=== PATIENT | male | born 1950 | race Caucasian/White ===

== ENCOUNTER 2019-09-18 04:45 | Observation (INO) | payer OTHER ==
[2019-09-18] MEDS ORDERED: Sodium Chloride 0.9% 1,000 ML IV ONE ×2 (05:07→07:18)
[2019-09-18] MEDS ORDERED: Morphine 4 MG/ML Syringe IVPUSH ONE (05:08)
[2019-09-18] MEDS ORDERED: Ondansetron 4 MG/2 ML SDV IVPUSH ONE (05:09)
[2019-09-18 05:27] LABS: BLOOD UREA NITROGEN,BUN 10 mg/dL (7.0-18.0); CARBON DIOXIDE,CO2 24.8 mmol/L (21.0-32.0); CHLORIDE,CL 105 mmol/L (98-107); GLUCOSE RANDOM 104 mg/dL (74-106); LIPASE 735 U/L (73-393); POTASSIUM,K 3.6 mmol/L (3.5-5.1); SODIUM,NA 141 mmol/L (136-148)
[2019-09-18] MEDS ORDERED: Iopamidol 755 Mg/ML 100 ML Bottle IVPUSH STA (05:42)
--- NOTE | 2019-09-18 07:09 | CT ---
INDICATION: Abdominal pain with vomiting and diarrhea. COMPARISON: 11/18/2018. TECHNIQUE: CT abdomen pelvis with IV contrast. 100 cc Isovue-370. FINDINGS: Linear scarring in the right middle lobe and lingula are again noted. Coronary artery calcifications. Mild intrahepatic biliary ductal dilatation is increased compared to prior exam. Status post cholecystectomy. Nodular cirrhotic liver morphology is again noted. Subcentimeter right hepatic hypoattenuating lesion is too small to characterize but stable. Spleen is mildly enlarged, stable. Pancreatic parenchymal calcifications are similar to prior exam likely sequelae of chronic pancreatitis. Adrenal glands are unremarkable. No obstructing renal calculus or hydronephrosis. Subcentimeter renal hypoattenuating lesions are too small to characterize but stable. Abdominal aorta is non aneurysmal. No lymphadenopathy in the abdomen pelvis. No free fluid or free air. Prostate is enlarged, similar to prior. Very bladder is unremarkable. Colonic diverticulosis. Appendix is nondilated, and extends into right inguinal hernia. Bilateral inguinal hernias, left contains fat in the right contains fat as well as the appendix. No evidence of bowel obstruction or inflammation. Degenerative changes again noted in the spine and hips. Rightward curvature of the spine is again noted. IMPRESSION: 1. Intrahepatic biliary ductal dilatation is increased from prior exam with of uncertain etiology. Recommend clinical correlation. 2. No evidence of bowel obstruction or inflammation. Appendix is unremarkable. 3. Cirrhotic liver morphology. 4. Diverticulosis. Please note that all CT scans at this facility use dose modulation, iterative reconstruction, and/or weight-based dosing when appropriate to reduce radiation dose to as low as reasonably achievable. Dictated by Jann Downs MD @ Sep 18 2019 6:58AM Signed by Dr. Jann Downs @ Sep 18 2019 7:08AM
--- NOTE | 2019-09-18 07:25 | EDM.PDOC ---
ED HPI GENERAL MEDICAL PROBLEM - General Chief Complaint: Abdominal Pain Stated Complaint: ABDOMINAL PAIN AND DIARRHEA Time Seen by Provider: 09/18/19 04:46 Source of Information: Reports: Patient History Limitations: Reports: No Limitations - History of Present Illness INITIAL COMMENTS - FREE TEXT/NARRATIVE: 69-year-old male who presents the emergency room with a chief complaint of severe epigastric pain going on for the past 2 days. States she has had some episodes of nausea and vomiting. Duration: Day(s): (4), Getting Worse Location: Reports: Abdomen Quality: Reports: Ache Severity: Moderate Improves with: Reports: None Worsens with: Reports: None Associated Symptoms: Reports: No Other Symptoms, Nausea/Vomiting Abdomen Pain Score (Numeric/FACES): 9 - Related Data Allergies Allergy/AdvReac Type Severity Reaction Status Date / Time No Known Allergies Allergy Verified 09/18/19 04:55 Home Meds: Home Meds . [No Known Home Meds] 09/18/19 [History] Past Medical History - Infectious Disease History Infectious Disease History: Reports: Hepatitis C - Past Surgical History GI Surgical History: Reports: Cholecystectomy Musculoskeletal Surgical History: Reports: Other (See Below) Other Musculoskeletal Surgeries/Procedures:: back surgery Social & Family History - Family History Family Medical History: Noncontributory - Tobacco Use Smoking Status *Q: Current Every Day Smoker Years of Tobacco use: 45 Packs/Tins Daily: 2 - Caffeine Use Caffeine Use: Reports: Coffee - Recreational Drug Use Recreational Drug Use: Yes Recreational Drug Type: Reports: Marijuana/Hashish Recreational Drug Use Frequency: Daily ED ROS GENERAL - Review of Systems Review Of Systems: See Below Constitutional: Reports: No Symptoms HEENT: Reports: No Symptoms Respiratory: Reports: No Symptoms Cardiovascular: Reports: No Symptoms Endocrine: Reports: No Symptoms GI/Abdominal: Reports: Abdominal Pain, Vomiting : Reports: No Symptoms Musculoskeletal: Reports: No Symptoms Skin: Reports: No Symptoms Neurological: Reports: No Symptoms Psychiatric: Reports: No Symptoms Hematologic/Lymphatic: Reports: No Symptoms Immunologic: Reports: No Symptoms ED EXAM, GI/ABD - Physical Exam Exam: See Below Exam Limited By: No Limitations General Appearance: Alert, WD/WN, No Apparent Distress Ears: Normal External Exam, Normal Canal, Hearing Grossly Normal, Normal TMs Nose: Normal Inspection, Normal Mucosa Throat/Mouth: Normal Inspection, Normal Lips Head: Atraumatic, Normocephalic Neck: Normal Inspection, Supple, Non-Tender, Full Range of Motion Respiratory/Chest: No Respiratory Distress, Lungs Clear, Normal Breath Sounds Cardiovascular: Normal Peripheral Pulses, Regular Rate, Rhythm, No Edema GI/Abdominal Exam: Normal Bowel Sounds, Soft, Non-Tender, No Organomegaly (Male) Exam: No Hernia, Normal Inspection Back Exam: Normal Inspection, Full Range of Motion Extremities: Normal Inspection, Normal Range of Motion Neurological: Alert, Oriented, CN II-XII Intact, Normal Cognition Psychiatric: Normal Affect, Normal Mood Skin Exam: Warm, Dry, Intact, Normal Color, No Rash Lymphatic: No Adenopathy Course - Vital Signs Text/Narrative:: This is a 69-year-old male who presents the emergency room chief complaints of severe epigastric pain nausea and vomiting. Patient states he is never had pain like this in the past Patient was given IV fluids and pain medicine labs were drawn. Patient's lipase is elevated to 736. Patient's CAT scan shows chronic pancreatitis no masses with some chronic hepatic changes. Patient will be admitted to the hospital with diagnosis of acute on chronic pancreatitis. IV fluids have been started patient is pain-free at this time. Reevaluation at 735 reveals patient is comfortable and in no acute distress. Cussed the case with Dr. Jha patient will be admitted to observation Last Recorded V/S: Last Vital Signs Temp 97.0 F 09/18/19 04:56 Pulse 52 L 09/18/19 04:56 Resp 20 09/18/19 04:56 BP 138/81 09/18/19 04:56 Pulse Ox 97 09/18/19 04:56 - Orders/Labs/Meds Orders: Active Orders 24 hr Category Date Time Status Abdomen Ltd [US] Stat Exams 09/18/19 07:18 Ordered Sodium Chloride 0.9% [Normal Saline] 1,000 ml Med 09/18/19 07:18 Active IV .Bolus Medication Orders Sodium Chloride (Normal Saline) 1,000 mls @ 999 mls/hr IV .Bolus ONE Stop: 09/18/19 08:18 Labs: Laboratory Tests 09/18/19 09/18/19 Range/Units 05:05 05:05 WBC 7.96 (4.0-11.0) K/uL RBC 5.03 (4.50-5.90) M/uL Hgb 17.1 H (13.0-17.0) g/dL Hct 48.1 (38.0-50.0) % MCV 95.6 (80.0-98.0) fL MCH 34.0 H (27.0-32.0) pg MCHC 35.6 (31.0-37.0) g/dL RDW Std Deviation 42.5 (28.0-62.0) fl RDW Coeff of Bina 12 (11.0-15.0) % Plt Count 128 L (150-400) K/uL MPV 11.40 (7.40-12.00) fL Neut % (Auto) 49.4 (48.0-80.0) % Lymph % (Auto) 41.3 H (16.0-40.0) % [place] % (Auto) 7.0 (0.0-15.0) % Eos % (Auto) 1.9 (0.0-7.0) % Baso % (Auto) 0.4 (0.0-1.5) % Neut # (Auto) 3.9 (1.4-5.7) K/uL Lymph # (Auto) 3.3 H (0.6-2.4) K/uL [place] # (Auto) 0.6 (0.0-0.8) K/uL Eos # (Auto) 0.2 (0.0-0.7) K/uL Baso # (Auto) 0.0 (0.0-0.1) K/uL Nucleated RBC % 0.0 /100WBC Nucleated RBCs # 0 K/uL Sodium 141 (136-148) mmol/L Potassium 3.6 (3.5-5.1) mmol/L Chloride 105 (98-107) mmol/L Carbon Dioxide 24.8 (21.0-32.0) mmol/L BUN 10 (7.0-18.0) mg/dL Creatinine 0.9 (0.8-1.3) mg/dL Est Cr Clr Drug Dosing 90.01 mL/min Estimated GFR (MDRD) > 60.0 ml/min Glucose 104 (74-106) mg/dL Calcium 8.2 L (8.5-10.1) mg/dL Total Bilirubin 0.8 (0.2-1.0) mg/dL AST 29 (15-37) IU/L ALT 28 (14-63) IU/L Alkaline Phosphatase 91 (46-116) U/L Total Protein 6.9 (6.4-8.2) g/dL Albumin 3.7 (3.4-5.0) g/dL Globulin 3.2 (2.6-4.0) g/dL Albumin/Globulin Ratio 1.2 (0.9-1.6) Lipase 735 H (73-393) U/L Meds: Medications Generic Name Dose Route Start Last Admin Trade Name Freq PRN Reason Stop Dose Admin Sodium Chloride 1,000 mls @ 999 mls/hr 09/18/19 07:18 Normal Saline IV 09/18/19 08:18 .Bolus ONE Discontinued Medications Generic Name Dose Route Start Last Admin Trade Name Freq PRN Reason Stop Dose Admin Sodium Chloride 1,000 mls @ 1,000 mls/hr 09/18/19 05:07 09/18/19 05:17 Normal Saline IV 09/18/19 06:06 1,000 mls/hr .Bolus ONE Administration Iopamidol 100 ml 09/18/19 05:42 09/18/19 06:15 Isovue-370 (76%) IVPUSH 09/18/19 05:43 100 ml ONETIME STA Administration Morphine Sulfate 4 mg 09/18/19 05:08 09/18/19 05:17 Morphine IVPUSH 09/18/19 05:09 4 mg ONETIME ONE Administration Ondansetron HCl 4 mg 09/18/19 05:09 09/18/19 05:17 Zofran IVPUSH 09/18/19 05:10 4 mg ONETIME ONE Administration Departure - Departure Time of Disposition: 07:25 Disposition: Refer to Observation Condition: Good Clinical Impression: Pancreatitis - Discharge Information Referrals: PCP,None [Primary Care Provider] - Sepsis Event Note - Evaluation Sepsis Screening Result: No Definite Risk - Focused Exam Vital Signs: Vital Signs Temp Pulse Resp BP Pulse Ox 09/18/19 04:56 97.0 F 52 L 20 138/81 97 Date Exam was Performed: 09/18/19 Time Exam was Performed: 07:19
--- NOTE | 2019-09-18 08:42 | US ---
Limited abdominal ultrasound: Multiple real-time images of the upper right abdomen were obtained. Comparison: Prior CT abdomen and pelvis study of 09/18/19. Visualized portions of the pancreas shows no discrete abnormality. Liver shows no focal parenchymal abnormality. Right kidney shows no hydronephrosis or mass. Right kidney has a length of 11.0 cm. Common bile duct measures normal. Prior cholecystectomy is noted. Impression: 1. No biliary duct dilatation is seen on this exam. Prior cholecystectomy. 2. Other portions of the right upper quadrant abdominal ultrasound are unremarkable. Diagnostic code #2 This report was dictated in MDT
[2019-09-18] MEDS ORDERED: Ondansetron 4 MG/2 ML SDV IVPUSH PRN (08:49)
--- NOTE | 2019-09-18 08:58 | PCM.HP.2 ---
H&P History of Present Illness - General Date of Service: 09/18/19 Admit Problem/Dx: Admission Diagnosis/Problem Admission Diagnosis/Problem Pancreatitis - History of Present Illness Initial Comments - Free Text/Narative: 69 yo male with pmh hep C, liver cirrhosis, esophageal varices who presents with a one day history of abdominal pain. The pain is periumbilical and nonradiating. Several days before he reported some fevers with loose stools. He denies any blood in stool. He report increase heart burn. CT scan and ultrasound of abdomen are unremarkable. Abdomen Pain Score (Numeric/FACES): 9 - Related Data Allergies/Adverse Reactions: Allergies Allergy/AdvReac Type Severity Reaction Status Date / Time No Known Allergies Allergy Verified 09/18/19 04:55 Home Medications: Home Meds . [No Known Home Meds] 09/18/19 [History] Past Medical History - Infectious Disease History Infectious Disease History: Reports: Hepatitis C - Past Surgical History GI Surgical History: Reports: Cholecystectomy Musculoskeletal Surgical History: Reports: Other (See Below) Other Musculoskeletal Surgeries/Procedures:: back surgery Social & Family History - Family History Family Medical History: Noncontributory - Tobacco Use Smoking Status *Q: Current Every Day Smoker Years of Tobacco use: 45 Packs/Tins Daily: 2 - Caffeine Use Caffeine Use: Reports: Coffee - Recreational Drug Use Recreational Drug Use: Yes Recreational Drug Type: Reports: Marijuana/Hashish Recreational Drug Use Frequency: Daily H&P Review of Systems - Review of Systems: Review Of Systems: Comprehensive ROS is negative, except as noted in HPI. Exam - Exam Exam: See Below - Vital Signs Vital Signs: Last Vital Signs Temp 35.9 C L 09/18/19 08:43 Pulse 69 09/18/19 08:43 Resp 16 09/18/19 08:43 BP 143/89 H 09/18/19 08:43 Pulse Ox 97 09/18/19 08:43 Weight: 90.718 kg - Exam General: Alert, Oriented HEENT: Mucosa Moist & [place], Posterior Pharynx Clear Lungs: Clear to Auscultation, Normal Respiratory Effort Cardiovascular: Regular Rate, Regular Rhythm GI/Abdominal Exam: Normal Bowel Sounds, Soft, Non-Tender Extremities: Non-Tender, No Pedal Edema Skin: Warm, Dry, Intact - Patient Data Lab Results Last 24 hrs: Laboratory Results - last 24 hr 09/18/19 09/18/19 Range/Units 05:05 05:05 WBC 7.96 (4.0-11.0) K/uL RBC 5.03 (4.50-5.90) M/uL Hgb 17.1 H (13.0-17.0) g/dL Hct 48.1 (38.0-50.0) % MCV 95.6 (80.0-98.0) fL MCH 34.0 H (27.0-32.0) pg MCHC 35.6 (31.0-37.0) g/dL RDW Std Deviation 42.5 (28.0-62.0) fl RDW Coeff of Bina 12 (11.0-15.0) % Plt Count 128 L (150-400) K/uL MPV 11.40 (7.40-12.00) fL Neut % (Auto) 49.4 (48.0-80.0) % Lymph % (Auto) 41.3 H (16.0-40.0) % [place] % (Auto) 7.0 (0.0-15.0) % Eos % (Auto) 1.9 (0.0-7.0) % Baso % (Auto) 0.4 (0.0-1.5) % Neut # (Auto) 3.9 (1.4-5.7) K/uL Lymph # (Auto) 3.3 H (0.6-2.4) K/uL [place] # (Auto) 0.6 (0.0-0.8) K/uL Eos # (Auto) 0.2 (0.0-0.7) K/uL Baso # (Auto) 0.0 (0.0-0.1) K/uL Nucleated RBC % 0.0 /100WBC Nucleated RBCs # 0 K/uL Sodium 141 (136-148) mmol/L Potassium 3.6 (3.5-5.1) mmol/L Chloride 105 (98-107) mmol/L Carbon Dioxide 24.8 (21.0-32.0) mmol/L BUN 10 (7.0-18.0) mg/dL Creatinine 0.9 (0.8-1.3) mg/dL Est Cr Clr Drug Dosing 90.01 mL/min Estimated GFR (MDRD) > 60.0 ml/min Glucose 104 (74-106) mg/dL Calcium 8.2 L (8.5-10.1) mg/dL Total Bilirubin 0.8 (0.2-1.0) mg/dL AST 29 (15-37) IU/L ALT 28 (14-63) IU/L Alkaline Phosphatase 91 (46-116) U/L Total Protein 6.9 (6.4-8.2) g/dL Albumin 3.7 (3.4-5.0) g/dL Globulin 3.2 (2.6-4.0) g/dL Albumin/Globulin Ratio 1.2 (0.9-1.6) Lipase 735 H (73-393) U/L Result Diagrams: 09/18/19 05:05 09/18/19 05:05 Sepsis Event Note - Evaluation Sepsis Screening Result: No Definite Risk - Focused Exam Vital Signs: Vital Signs Temp Pulse Resp BP Pulse Ox 09/18/19 08:43 35.9 C L 69 16 143/89 H 97 09/18/19 07:30 61 18 122/83 98 09/18/19 04:56 36.1 C 52 L 20 138/81 97 Date Exam was Performed: 09/18/19 Time Exam was Performed: 08:52 Problem List Initiated/Reviewed/Updated: Yes Orders Last 24hrs: Active Orders 24 hr Category Date Time Status Admission Status [Patient Status] [ADT] Stat ADT 09/18/19 07:27 Active Antiembolic Devices [RC] PER UNIT ROUTINE Care 09/18/19 08:51 Ordered Oxygen Therapy [RC] PRN Care 09/18/19 08:50 Ordered Up ad Brigitte [RC] ASDIRECTED Care 09/18/19 08:49 Ordered VTE/DVT Education [RC] PER UNIT ROUTINE Care 09/18/19 08:50 Ordered Vital Signs [RC] Q4H Care 09/18/19 08:50 Ordered Nothing per Oral Now Diet [DIET] Diet 09/18/19 Breakfast Ordered C DIFFICILE AG/TOXIN W/REFLEX [RM] Routine Lab 09/18/19 08:51 Ordered CBC WITH AUTO DIFF [HEME] AM Lab 09/19/19 05:11 Ordered COMPREHENSIVE METABOLIC PN,CMP [CHEM] AM Lab 09/19/19 05:11 Ordered STOOL CULTURE/SHIGA TOXIN [MREF] Routine Lab 09/18/19 08:51 Ordered Morphine Med 09/18/19 08:49 Ordered 2 mg IVPUSH Q2H PRN Ondansetron [Zofran] Med 09/18/19 08:49 Ordered 4 mg IVPUSH Q4H PRN Sodium Chloride 0.9% @ 150 MLS/HR (1,000ml) Med 09/18/19 09:00 Ordered Sodium Chloride 0.9% [Normal Saline] 1,000 ml IV ASDIRECTED Sequential Compression Device [OM.PC] Per Unit Routine Oth 09/18/19 08:50 Ordered Resuscitation Status Routine Resus Stat 09/18/19 08:49 Ordered Medication Orders Sodium Chloride (Normal Saline) 1,000 mls @ 150 mls/hr IV ASDIRECTED [facility] Morphine Sulfate (Morphine) 2 mg IVPUSH Q2H PRN PRN Reason: Pain (severe 7-10) Stop: 09/19/19 08:51 Ondansetron HCl (Zofran) 4 mg IVPUSH Q4H PRN PRN Reason: Nausea Assessment/Plan Comment:: 69 yo male admitted for acute pancreatitis vs gastroenteritis. We will treat with IV fluids, bowel rest and prn morphine.
[2019-09-18] MEDS: Sodium Chloride 0.9% 1,000 ML IV SCH ×3 (09:28→23:16)
[2019-09-18] MEDS: Pantoprazole 40 MG in Sodium Chloride 0.9% 10 ML IV SCH (09:32)
[2019-09-18] MEDS: Morphine 2 MG/ML Syringe IVPUSH PRN ×2 (09:34→15:18)
[2019-09-18] MEDS: Nicotine 21 MG/24 Hr Patch TRDERM SCH (09:45)
[2019-09-19] MEDS: Sodium Chloride 0.9% 1,000 ML IV SCH (06:16)
[2019-09-19 06:40] LABS: BLOOD UREA NITROGEN,BUN 9 mg/dL (7.0-18.0); CARBON DIOXIDE,CO2 20.9 mmol/L (21.0-32.0); CHLORIDE,CL 109 mmol/L (98-107); GLUCOSE RANDOM 71 mg/dL (74-106); POTASSIUM,K 3.7 mmol/L (3.5-5.1); SODIUM,NA 142 mmol/L (136-148)
--- NOTE | 2019-09-19 08:14 | PCM.DCSUM1 ---
Discharge Summary - Discharge Data Discharge Date: 09/19/19 Discharge Disposition: Home, Self-Care 01 Condition: Stable - Referral to Home Health Primary Care Physician: PCP None - Patient Summary/Data Hospital Course: 69 yo male with pmh hep C, liver cirrhosis, esophageal varices who presents with a one day history of abdominal pain. The pain was periumbilical and nonradiating. Several days before he reported some fevers with loose stools. He denies any blood in stool. He report increase heart burn. Lab work was unremarkable CT scan and ultrasound of abdomen were also unremarkable. He was treated with IV fluids and had resolution of his pain. This morning he is requesting discharge home. He is to follow up with the [place] clinic. - Patient Instructions Diet: Clear Liquid Diet (for 24 hours) - Discharge Plan Home Medications: Home Meds . [No Known Home Meds] 09/18/19 [History] Patient Handouts: Acute Pancreatitis, [id number] - Discharge Summary/Plan Comment DC Time >30 min.: No - Patient Data Vitals - Most Recent: Last Vital Signs Temp 36.5 C 09/19/19 04:00 Pulse 48 L 09/19/19 04:00 Resp 16 09/19/19 04:00 BP 94/49 L 09/19/19 04:00 Pulse Ox 97 09/19/19 04:00 Weight - Most Recent: 89.947 kg I&O - Last 24 hours: Intake & Output 09/18/19 09/19/19 09/19/19 22:59 06:59 14:59 Intake Total 966 1798 Output Total 900 500 Balance 66 1298 Lab Results - Last 24 hrs: Laboratory Results - last 24 hr 09/18/19 09/19/19 09/19/19 Range/Units 05:05 05:45 05:45 WBC 3.99 L (4.0-11.0) K/uL RBC 4.14 L (4.50-5.90) M/uL Hgb 13.5 (13.0-17.0) g/dL Hct 39.8 (38.0-50.0) % MCV 96.1 (80.0-98.0) fL MCH 32.6 H (27.0-32.0) pg MCHC 33.9 (31.0-37.0) g/dL RDW Std Deviation 42.5 (28.0-62.0) fl RDW Coeff of Bina 12 (11.0-15.0) % Plt Count 114 L (150-400) K/uL MPV 11.70 (7.40-12.00) fL Neut % (Auto) 61.6 (48.0-80.0) % Lymph % (Auto) 30.6 (16.0-40.0) % [place] % (Auto) 5.8 (0.0-15.0) % Eos % (Auto) 1.5 (0.0-7.0) % Baso % (Auto) 0.5 (0.0-1.5) % Neut # (Auto) 2.5 (1.4-5.7) K/uL Lymph # (Auto) 1.2 (0.6-2.4) K/uL [place] # (Auto) 0.2 (0.0-0.8) K/uL Eos # (Auto) 0.1 (0.0-0.7) K/uL Baso # (Auto) 0.0 (0.0-0.1) K/uL Nucleated RBC % 0.0 /100WBC Nucleated RBCs # 0 K/uL Sodium 142 (136-148) mmol/L Potassium 3.7 (3.5-5.1) mmol/L Chloride 109 H (98-107) mmol/L Carbon Dioxide 20.9 L (21.0-32.0) mmol/L BUN 9 (7.0-18.0) mg/dL Creatinine 0.8 (0.8-1.3) mg/dL Est Cr Clr Drug Dosing 101.26 mL/min Estimated GFR (MDRD) > 60.0 ml/min Glucose 71 L (74-106) mg/dL Calcium 7.8 L (8.5-10.1) mg/dL Total Bilirubin 0.9 (0.2-1.0) mg/dL AST 37 (15-37) IU/L ALT 53 (14-63) IU/L Alkaline Phosphatase 128 H (46-116) U/L Total Protein 5.5 L (6.4-8.2) g/dL Albumin 2.8 L (3.4-5.0) g/dL Globulin 2.7 (2.6-4.0) g/dL Albumin/Globulin Ratio 1.0 (0.9-1.6) Triglycerides 92 (0-200) mg/dL Cholesterol 107 (50-200) mg/dL LDL Cholesterol, Calc 62 (60-180) mg/dL VLDL Cholesterol 18 (5-55) mg/dL HDL Cholesterol 27 L (40-60) mg/dL Cholesterol/HDL Ratio 4.0 (3.3-6.0) Med Orders - Current: Current Medications Sodium Chloride (Normal Saline) 1,000 mls @ 150 mls/hr IV ASDIRECTED [facility] Last Admin: 09/19/19 06:16 Dose: 150 mls/hr Pantoprazole Sodium 40 mg/ (Sodium Chloride) 10 mls @ 300 mls/hr IV DAILY [facility] Last Admin: 09/18/19 09:32 Dose: 300 mls/hr Morphine Sulfate (Morphine) 2 mg IVPUSH Q2H PRN PRN Reason: Pain (severe 7-10) Stop: 09/19/19 08:51 Last Admin: 09/18/19 15:18 Dose: 2 mg Nicotine (Habitrol) 21 mg TRDERM DAILY [facility] Last Admin: 09/18/19 09:45 Dose: 21 mg Ondansetron HCl (Zofran) 4 mg IVPUSH Q4H PRN PRN Reason: Nausea Discontinued Medications Sodium Chloride (Normal Saline) 1,000 mls @ 1,000 mls/hr IV .Bolus ONE Stop: 09/18/19 06:06 Last Admin: 09/18/19 05:17 Dose: 1,000 mls/hr Sodium Chloride (Normal Saline) 1,000 mls @ 999 mls/hr IV .Bolus ONE Stop: 09/18/19 08:18 Last Admin: 09/18/19 07:31 Dose: 999 mls/hr Iopamidol (Isovue-370 (76%)) 100 ml IVPUSH ONETIME STA Stop: 09/18/19 05:43 Last Admin: 09/18/19 06:15 Dose: 100 ml Morphine Sulfate (Morphine) 4 mg IVPUSH ONETIME ONE Stop: 09/18/19 05:09 Last Admin: 09/18/19 05:17 Dose: 4 mg Ondansetron HCl (Zofran) 4 mg IVPUSH ONETIME ONE Stop: 09/18/19 05:10 Last Admin: 09/18/19 05:17 Dose: 4 mg
[2019-09-19] MEDS: Pantoprazole 40 MG in Sodium Chloride 0.9% 10 ML IV SCH (08:28)
[2019-09-19] MEDS: Nicotine 21 MG/24 Hr Patch TRDERM SCH (08:29)
== END 2019-09-19 10:57 | disposition home or self-care (01) ==
LOC: MW.ED 04:45 → MW.MS 07:27
PROVIDERS: ADMIT Internal Medicine; ATTEND Internal Medicine
DX: R10.33 Periumbilical pain (principal); R19.7 Diarrhea, unspecified; R50.9 Fever, unspecified; K74.60 Unspecified cirrhosis of liver; F17.210 Nicotine dependence, cigarettes, uncomplicated; Z90.49 Acquired absence of other specified parts of digestive tract
CPT/HCPCS: 36415; 74177; 76705; 80053; 80061; 83690; 85025; 96361; 96374; 96375; 96376; 99285; A9270; C9113; G0378; J2270; J2405; J7030; J7050; Q9967

== ENCOUNTER 2020-10-11 10:48 | Day surgery (SDC) | payer OTHER ==
[~2020-10-11 10:48] MED LIST: Glycopyrrolate 0.2 MG/ML SDV ONE; Ketorolac 30 MG/ML SDV ONE; Lactated Ringers 1,000 ML IV SCH; Lidocaine 2% 5 ML SDV ONE; Midazolam 1 MG/ML 2 ML SDV ONE; Ondansetron 4 MG/2 ML SDV ONE; Propofol 200 MG/20 ML SDV ONE; cefOXitin 2 GM in Premix Bag 1 BAG IV SCH; fentaNYL 100 MCG/2 ML SDV ONE
[2020-10-11] MEDS ORDERED: Octyl 2-Cyanoacrylate 1 Tube ONE (11:29)
[2020-10-11] MEDS ORDERED: Bupivacaine 25%/EPINEPHrine/PF 30 ML ONE (11:29)
[2020-10-11] MEDS ORDERED: fentaNYL 250 MCG/5 ML SDV ONE (11:54)
[2020-10-11] MEDS ORDERED: Ondansetron 4 MG/2 ML SDV ONE (11:54)
[2020-10-11] MEDS ORDERED: Glycopyrrolate 0.2 MG/ML SDV ONE (11:54)
[2020-10-11] MEDS ORDERED: Midazolam 1 MG/ML 2 ML SDV ONE (11:54)
[2020-10-11] MEDS ORDERED: Propofol 200 MG/20 ML SDV ONE (11:54)
[2020-10-11] MEDS ORDERED: Ketorolac 30 MG/ML SDV ONE ×2 (11:54→14:45)
[2020-10-11] MEDS ORDERED: Lidocaine 2% 5 ML SDV ONE (11:54)
--- NOTE | 2020-10-11 11:57 | PCM.PREANE ---
Preanesthetic Assessment - Anesthesia/Transfusion/Family Hx Anesthesia History: Prior Anesthesia Without Reaction Family History of Anesthesia Reaction: No Transfusion History: No Prior Transfusion(s) - Review of Systems General: No Symptoms Pulmonary: No Symptoms Cardiovascular: No Symptoms Gastrointestinal: No Symptoms Neurological: No Symptoms Other: Reports: None - Physical Assessment NPO Status Date: 10/11/20 NPO Status Time: 00:05 Vital Signs: Last Vital Signs Temp 97.7 F 10/11/20 11:08 Pulse 62 10/11/20 11:08 Resp 16 10/11/20 11:08 BP 134/91 H 10/11/20 11:08 Pulse Ox 99 10/11/20 11:08 Height: 6 ft 1 in Weight: 195 lb ASA Class: 2 Mental Status: Alert & Oriented x3 Airway Class: Mallampati = 2 Dentition: Reports: Normal Dentition, Dentures ROM/Head Extension: Limited/Partial Lungs: Clear to Auscultation, Normal Respiratory Effort Cardiovascular: Regular Rate, Regular Rhythm - Allergies Allergies/Adverse Reactions: Allergies Allergy/AdvReac Type Severity Reaction Status Date / Time No Known Allergies Allergy Verified 10/11/20 11:13 - Anesthesia Plan Pre-Op Medication Ordered: None - Acknowledgements Anesthesia Type Planned: General Anesthesia Pt an Appropriate Candidate for the Planned Anesthesia: Yes Alternatives and Risks of Anesthesia Discussed w Pt/Guardian: Yes Pt/Guardian Understands and Agrees with Anesthesia Plan: Yes Additional Comments: npo after [place] tob 1 ppd etoh none for 40 years anxiety depression hayfever gout microdisc back surgery he has no cervical radiculopathy per pt no cv problems ni bp meds par no questions PreAnesthesia Questionnaire HEENT History: Reports: Allergic Rhinitis, Hard of Hearing, Other (See Below) Other HEENT History: wears glasses, has upper and lower dentures, has bilateral hearing aides Gastrointestinal History: Reports: Hepatitis Other Gastrointestinal History: hx of Hepatitis B- has been treated and cleared Musculoskeletal History: Reports: Arthritis, Back Pain, Chronic, Fracture, Gout, Neck Pain, Chronic Other Musculoskeletal History: hx of fx leg x2 as a child Psychiatric History: Reports: PTSD - Infectious Disease History Infectious Disease History: Reports: Hepatitis C - Past Surgical History Head Surgeries/Procedures: Reports: None GI Surgical History: Reports: Cholecystectomy Male Surgical History: Reports: Vasectomy Neurological Surgical History: Reports: Laminectomy, Lumbar Spine Musculoskeletal Surgical History: Reports: Other (See Below) Other Musculoskeletal Surgeries/Procedures:: back surgery - SUBSTANCE USE Tobacco Use Status *Q: Current Every Day Tobacco User Tobacco Use Within Last Twelve Months: Cigarettes Recreational Drug Use History: Yes Recreational Drug Type: Reports: Marijuana/Hashish - HOME MEDS Home Medications: Home Meds Fluticasone Propionate [Flonase Allergy Relief] 1 spray NASBOTH DAILY 10/07/20 [History] Multivitamin 1 tab PO DAILY 10/07/20 [History] - CURRENT (IN HOUSE) MEDS Current Meds: Current Medications Lactated Ringer's (Ringers, Lactated) 1,000 mls @ 125 mls/hr IV ASDIRECTED [facility] Last Admin: 10/11/20 11:13 Dose: 125 mls/hr Documented by: Cefoxitin Sodium 2 gm/ Premix 50 mls @ 100 mls/hr IV ONCALL [facility] Discontinued Medications Fentanyl (Fentanyl 100 Mcg/2 Ml Sdv) Confirm Administered Dose 100 mcg .ROUTE .STK-MED ONE Stop: 10/11/20 10:36 Glycopyrrolate (Glycopyrrolate 0.2 Mg/Ml Sdv) Confirm Administered Dose 0.2 mg .ROUTE .STK-MED ONE Stop: 10/11/20 10:36 Bupivacaine HCl/Epinephrine Bitart (Sensorc Mpf 0.25%-Epi [id number]) Confirm Ad ministered Dose 30 mls @ as directed .ROUTE .STK-MED ONE Stop: 10/11/20 11:30 Ketorolac Tromethamine (Ketorolac 30 Mg/Ml Sdv) Confirm Administered Dose 30 mg .ROUTE .STK-MED ONE Stop: 10/11/20 10:36 Lidocaine (Lidocaine 2% 5 Ml Sdv) Confirm Administered Dose 5 ml .ROUTE .STK-MED ONE Stop: 10/11/20 10:36 Midazolam HCl (Midazolam 1 Mg/Ml 2 Ml Sdv) Confirm Administered Dose 2 mg .ROUTE .STK-MED ONE Stop: 10/11/20 10:36 Octyl Cyanoacrylate (Octyl 2-Cyanoacrylate 1 Tube) Confirm Administered Dose 1 applic .ROUTE .STK-MED ONE Stop: 10/11/20 11:30 Ondansetron HCl (Ondansetron 4 Mg/2 Ml Sdv) Confirm Administered Dose 4 mg .ROUTE .STK-MED ONE Stop: 10/11/20 10:36 Propofol (Propofol 200 Mg/20 Ml Sdv) Confirm Administered Dose 200 mg .ROUTE .[facility]-MED ONE Stop: 10/11/20 10:36
--- NOTE | 2020-10-11 14:34 | PCM.OPNOTE ---
- General Post-Op/Procedure Note Date of Surgery/Procedure: 10/11/20 Operative Procedure(s): IHR w mesh, right Findings: see dict [id number]; large indirect inguinal hernia, no direct inguinal, right Pre Op Diagnosis: ing hernia, right Post-Op Diagnosis: Same Anesthesia Technique: General ET Tube Primary Surgeon: Darryl Sy Pathology: hernia sac Complications: None Condition: Good
[2020-10-11] MEDS ORDERED: Ketorolac 30 MG/ML SDV IVPUSH ONE (14:47)
[2020-10-11] MEDS ORDERED: fentaNYL 100 MCG/2 ML SDV ONE (14:48)
[2020-10-11] MEDS: fentaNYL 100 MCG/2 ML SDV IVPUSH SCH ×2 (14:55→15:00)
[2020-10-11] MEDS ORDERED: fentaNYL 100 MCG/2 ML SDV IVPUSH SCH (15:00)
[2020-10-11] MEDS: HYDROmorphone 2 MG/ML Syringe IVPUSH PRN ×2 (15:02→15:17)
--- NOTE | 2020-10-11 16:22 | PCM.POSTAN ---
POST ANESTHESIA ASSESSMENT - MENTAL STATUS Mental Status: Alert, Oriented - VITAL SIGNS Vital Signs: Last Vital Signs Temp 97.5 F 10/11/20 15:25 Pulse 76 10/11/20 16:10 Resp 16 10/11/20 16:10 BP 144/92 H 10/11/20 16:10 Pulse Ox 98 10/11/20 16:10 - RESPIRATORY Respiratory Status: Respiratory Rate WNL, Airway Patent, O2 Saturation Stable - CARDIOVASCULAR CV Status: Pulse Rate WNL, Blood Pressure Stable - GASTROINTESTINAL GI Status: No Symptoms - PAIN Pain Score: 5 - POST OP HYDRATION Hydration Status: Adequate & Stable
--- NOTE | 2020-10-11 16:23 | PCM48HPAN ---
Post Anesthesia Note - EVALUATION WITHIN 48HRS OF ANESTHETIC Vital Signs in Normal Range: Yes Patient Participated in Evaluation: Yes Respiratory Function Stable: Yes Airway Patent: Yes Cardiovascular Function Stable: Yes Hydration Status Stable: Yes Pain Control Satisfactory: Yes Nausea and Vomiting Control Satisfactory: Yes Mental Status Recovered: Yes Vital Signs: Last Vital Signs Temp 97.5 F 10/11/20 15:25 Pulse 76 10/11/20 16:10 Resp 16 10/11/20 16:10 BP 144/92 H 10/11/20 16:10 Pulse Ox 98 10/11/20 16:10
--- NOTE | 2020-10-11 21:06 | OR ---
SURGEON: Darryl Sy MD DATE OF PROCEDURE: 10/11/2020 PREOPERATIVE DIAGNOSIS: Right inguinal hernia. POSTOPERATIVE DIAGNOSIS: Right inguinal hernia. PROCEDURE PERFORMED: Inguinal hernia repair with mesh on the right side. PRIMARY SURGEON: Darryl Sy MD COMPLICATIONS: None. FINDING: The patient has a very large inguinal hernia on the right side, indirect, and there was no direct inguinal hernia. A small plug was placed and repair with a plug and mesh. PROCEDURE IN DETAIL: The patient was taken to the operating room and placed in the supine position. Upon induction of general endotracheal anesthesia, the patient's groin and inguinal area were prepped and draped in a sterile fashion. The scrotum was placed on top of the drape in case it needed to be maneuvered. An IV antibiotic was given prophylactically and after assessment of appropriate landmark, a transverse skin incision was made two fingers above the inguinal crease. This was then carefully taken down past the Rosalio fascia and exposed the external oblique where the cord is. A small patsy was made right on top of the cord and then using a Metzenbaum scissors, carefully opened up the fiber along its direction all the way to the external ring. The spermatic cord was then carefully lifted up from the inguinal canal. A Logan drain was then used to hold on to manipulate the cord and carefully dissect out from the inguinal floor. The cremasteric muscle was then opened up. Careful examined of the cord, dissected down the cremasteric muscle, a large glistening whitish hernia sac in the medial anterior aspect of the floor, next to the cord, was located. The vas was identified and pushed aside to avoid damage. This was carefully dissected down all the way to the internal ring. The hernia sac was open up to examine if there was any hernia content; using a 2-0 silk, a purse string was placed to close the sac and the redundant part of the sac was amputated. A small plug was inserted into the hernia stump and followed with a mesh to reinforce the inguinal floor. The mesh was then anchored down by using 2-0 Prolene stitches to the periosteum of the pubic symphysis, then running down to the lateral aspect of the rectus muscle. The lateral part of the mesh was then anchored to the Graham ligament, again using 2-0 Prolene. The last few stitches also anchored the plug to make sure the plug is not migrating. Where the cord exits out, a stitch was placed in the two tails to repair the internal ring. Upon conclusion of surgery, I used a finger to make sure the ring is not too tight and not too loose, followed with some irrigation. The external oblique was then repaired by use of 2-0 Vicryl and the recreation external ring was also tested, not too tight, not too loose, followed with 2-0 Vicryl and closed the Rosalio fascia and the skin stapled to approximate the skin, followed by appropriate dressing. The patient was then awakened, extubated and transferred to recovery room in a hemodynamically stable condition. The patient tolerated the procedure well. There were no intraoperative complications. Dr. Sy was present through the whole procedure. Just before surgery, a timeout was called. The patient was identified and procedure identified and procedure started. As always, thank you for the kind referral. INTRAOPERATIVE FINDINGS: As dictated above. MAGDA / ALYCE /[id number]
== END 2020-10-11 16:39 | disposition home or self-care (01) ==
LOC: MW.SDS 10:48
PROVIDERS: ATTEND Surgery
DX: K40.90 Unilateral inguinal hernia, without obstruction or gangrene, not specified as recurrent (principal); F17.210 Nicotine dependence, cigarettes, uncomplicated; M10.9 Gout, unspecified; Z98.890 Other specified postprocedural states; Z79.899 Other long term (current) drug therapy
CPT/HCPCS: 49505; 88302; C1781; J1170; J1885; J2405; J2704; J3010; J3490; J7120; 00830; A9270-GY; J2250

== ENCOUNTER 2022-06-20 11:09 | Emergency (ER) | payer OTHER ==
[2022-06-20] MEDS ORDERED: Orphenadrine 60 MG/2 ML Inj IM ONE (12:24)
[2022-06-20 13:45] LABS: CARBON DIOXIDE,CO2 27.7 mmol/L (21.0-32.0); POTASSIUM,K 4.7 mmol/L (3.5-5.1)
== END 2022-06-20 15:07 | disposition home or self-care (01) ==
LOC: MW.ED 11:09
DX: M48.54XA Collapsed vertebra, not elsewhere classified, thoracic region, initial encounter for fracture (principal); M25.512 Pain in left shoulder; R00.1 Bradycardia, unspecified
CPT/HCPCS: 36415; 72128; 72131; 73030; 80053; 81003; 83735; 84484; 85025; 85610; 93005; 96372; 99284; J2360

== ENCOUNTER 2022-07-01 10:17 | Emergency (ER) | payer OTHER | END 2022-07-01 11:26 | disposition home or self-care (01) | LOC: MW.ED 10:17 | DX: M54.6 Pain in thoracic spine (principal); M25.511 Pain in right shoulder | CPT/HCPCS: 99283 ==

== ENCOUNTER 2022-07-29 00:12 | Emergency (ER) | payer OTHER ==
[2022-07-29] MEDS ORDERED: HYDROmorphone 1 MG/ML Syringe IVPUSH ONE (00:36)
[2022-07-29] MEDS ORDERED: Sodium Chloride 0.9% 1,000 ML IV ONE (00:36)
[2022-07-29] MEDS ORDERED: Ondansetron 4 MG/2 ML SDV IVPUSH ONE (00:36)
[2022-07-29 01:16] LABS: BLOOD UREA NITROGEN,BUN 14 mg/dL (7.0-18.0); CARBON DIOXIDE,CO2 28.5 mmol/L (21.0-32.0); CHLORIDE,CL 101 mmol/L (98-107); GLUCOSE RANDOM 108 mg/dL (74-106); LIPASE 114 U/L (73-393); POTASSIUM,K 3.9 mmol/L (3.5-5.1); SODIUM,NA 139 mmol/L (136-148)
[2022-07-29 01:19] LABS: ESTIMATED GFR 81 mL/min (>60)
[2022-07-29] MEDS ORDERED: Iopamidol 755 MG/ML 500 ML Multipack Bottle IVPUSH STA (02:33)
== END 2022-07-29 03:08 | disposition home or self-care (01) ==
LOC: MW.ED 00:12
DX: R10.13 Epigastric pain (principal); F17.210 Nicotine dependence, cigarettes, uncomplicated; Z20.822 Contact with and (suspected) exposure to COVID-19
CPT/HCPCS: 36415; 74177; 80053; 80307; 83690; 83735; 84484; 85025; 85610; 87635; 96361; 96374; 96375; 99284; J1170; J2405; J7030; Q9967; U0002